=== PATIENT | female | born 1960 | race Caucasian/White ===

== ENCOUNTER 2023-03-12 10:47 | Emergency (ER) | payer MEDICARE, BC, SELFPAY ==
--- NOTE | ~2023-03-12 | CT_ITS ---
EXAMINATION: CT CHEST WITHOUT CONTRAST CLINICAL INFORMATION: Dyspnea on exertion with palpitations COMPARISON: None available. TECHNIQUE: Multidetector volumetric CT imaging of the chest was done. Axial MIP volume rendering provided. Sagittal and coronal reformatted images were obtained. This CT examination was performed using dose optimization techniques as appropriate, variously including the following: *Automated exposure control *Adjustment of mA and/or kV according to patient size (this includes techniques or standardized protocols for targeted exams where dose is matched to indication/reason for exam; i.e. extremities or head) *Use of iterative reconstruction technique DLP: 205 mGy-cm FINDINGS: LUNGS: Biapical pleural-parenchymal scarring is present. Small pulmonary nodules are present with some calcified (for example right upper lobe 7:100) and some not calcified (the largest measuring 3 mm in the right upper lobe (7:188)). The lungs are otherwise clear with no evidence of inflammation or nodules. MEDIASTINUM: The thyroid does not appear to be present in the spine noted in the thyroid bed. There is a 1 cm left paratracheal AP window lymph node. No hilar or mediastinal lymphadenopathy. But evaluation limited by lack of IV contrast. CORONARY ARTERY CALCIFICATION: Present PLEURA: There is no pleural effusion. No pleural mass or thickening. AXILLA: No lymphadenopathy. UPPER ABDOMEN: Unremarkable. OSSEOUS STRUCTURES: Unremarkable. CT/CT chest wo IV con IMPRESSION: 1. A cause for the patient's shortness of breath has not been found. 2. Incidental note made of a few small pulmonary micronodules, none larger 3 mm in size. Fleischner guidelines were followed.
--- NOTE | ~2023-03-12 | US_ITS ---
EXAMINATION: US EXTRACRANIAL CAROTID DUPLEX, BILATERAL CLINICAL INFORMATION: Amaurosis fugax. On heaviness. COMPARISON: None available. TECHNIQUE: Real-time ultrasound and Doppler techniques (integrating B-mode 2-D vascular images, Doppler spectral analysis and color-flow Doppler imaging) were utilized to interrogate the extracranial carotid arteries, the vertebral arteries and proximal subclavian arteries bilaterally. The degree of stenosis is determined by criteria similar to NASCET. FINDINGS: Right Side: 1. There is no atherosclerotic plaque seen in the bifurcation/proximal ICA region. 2. The common carotid artery PSV proximally is 79.5 cm/s and distally 65.9 cm/s. 3. The proximal internal carotid artery velocities are 67.1 cm/s systolic and 24.2 cm/s diastolic. 4. The proximal external carotid artery PSV is 72.8 cm/s. 5. The vertebral artery shows antegrade flow. 6. The subclavian artery waveforms are normal. Left Side: 1. There is no atherosclerotic plaque seen in the bifurcation/proximal ICA region. 2. The common carotid artery PSV proximally is 70.5 cm/s and distally 77.9 cm/s. 3. The proximal internal carotid artery velocities are 62.0 cm/s systolic and 19.8 cm/s diastolic. 4. The proximal external carotid artery PSV is 70.2 cm/s. 5. The vertebral artery shows 44.3 flow. 6. The subclavian artery waveforms are normal. US/US carotid duplex BI IMPRESSION: 1. RIGHT: No hemodynamically significant stenosis. 1. LEFT: No hemodynamically significant stenosis. 2. Normal antegrade flow seen in both vertebral arteries.
--- NOTE | 2023-03-12 07:00 | CA_ITS ---
Transthoracic Echocardiogram Patient (Last, First, Middle): Re Hayden M Gender: Female Date of : 1960 Age: 63 Procedure Date: 03/12/2023 Procedure Type: Transthoracic Echocardiogram Location: ER Height: 167.64 cm Weight: 63.5 kg BSA: 1.72 m2 Heart Rate: bpm BP: 107 / 50 mmHg Vice President Risk Management: Referring MD: Tip Jain MD Symptoms: Palpitations, dyspnea Study Quality: Adequate, good on apical ECG Rhythm: Sinus Conclusions: - The left ventricular systolic function is normal. The calculated ejection fraction is 68% by biplane method. - No obvious valvular pathology seen on this study. Findings Left Ventricle Normal left ventricular cavity size. There is normal left ventricular wall thickness. The left ventricular systolic function is normal. The calculated ejection fraction is 68% by biplane method. There is no evidence of regional wall motion abnormalities. Diastolic function is normal for age. LV peak GLS -20.1%. Right Ventricle Normal right ventricular cavity size and systolic function. Atria Both atria are normal in size. Aortic Valve The aortic valve was not well visualized. There is no aortic valve stenosis. There is no aortic valve regurgitation. Mitral Valve The mitral valve appears normal. There is mild mitral annular calcification. There is trace mitral valve regurgitation. There is no mitral valve stenosis. Pulmonic Valve The pulmonic valve is likely normal. Tricuspid Valve Normal tricuspid valve structure. There is mild tricuspid valve regurgitation. There is no evidence of pulmonary hypertension. Great Vessels The asc aorta is normal in size. Venous The inferior vena cava is normal in size and collapses greater than 50% with inspiration. Pericardium/Pleural There is no evidence of pericardial effusion. Prior Study Comparison No prior study available for comparison. Recommendations, Care & Conclusions No obvious valvular pathology seen on this study. Measurements 2D Linear Measurements IVSd: 1.01 0.6-0.9/0.6-1.0 cm LVIDd: 4.23 3.9-5.3/4.2-5.9 cm LVIDd Index: 2.46 2.4-3.2/2.2-3.1 cm/m2 LVIDs: 2.70 2.0-3.6 cm LVPWd: 1.01 0.7-1.1 cm Ao Root: 3.40 2.1-3.5 cm LA Diam: 3.30 2.7-3.8/3.0-4.0 cm LAIDs Index: 1.92 1.5-2.3 cm/m2 LV Mass: 175.19 67-162/88-224 g LV Mass Index: 101.86 43-95/49-115 g/m2 LVOT Diam: 2.00 3.0+(-)1.3 cm 2D Systolic Function EF 4C: 65.20 >55% EF 2C: 70.70 >55% EF BiP: 67.60 >55% Mitral Valve MV Pk E: 0.88 MV PK A: 0.80 MV Decel Time: 245.00 E/A: 1.10 E'Lateral: 8.38 E'Medial: 8.27 E/E' Med: 10.70 E/E' Lat: 10.50 PHT: 72.00 MVA PHT: 3.06 Decel [place]: 3.60 Aortic Valve AoV Pk Fred: 1.48 AoV Mn Fred: 1.01 AoV VTI: 0.41 AoV Pk Grad: 9.00 Aov Mn Grad: 5.00 LVOT LVOT Diam: 2.00 LVOT Area: 3.14 Diastolic Function MV Pk E: 0.88 MV Pk A: 0.80 E/A: 1.10 E'Medial: 8.27 E/E' Med: 10.70 E' Laterial: 8.38 E/E' Lat: 10.50 Right Ventricle TVS' Fred: 15.00 Tricuspid Valve TR Pk Fred: 2.23 TR Pk Grad: 20.00 RA Press: 3.00 RVSP: 23.00 Great Vessels Aorta Ao Root-2D: 3.40 2.0-3.7 cm Ao Asc: 3.00 2.1-3.4 cm Pulmonary Valve PV Pk Fred: 0.88 Peak PV Grad: 3.00 Updated in Other Vendor System with Status of Final Ben Burr MD electronically signed on 03/12/2023 3:22:56 PM with status of Final
--- NOTE | 2023-03-12 10:58 | ED.ARRPALP ---
HPI - Arrhythmia/Palpitations General Chief Complaint: Arrhythmia/Palpitations <[place] Farrell - Last Filed: 03/12/23 11:07> Stated Complaint: Palpitations <[place] Farrell - Last Filed: 03/12/23 11:07> Time Seen by Provider: 03/12/23 11:47 <[place] Farrell - Last Filed: 03/12/23 11:07> History of Present Illness HPI narrative: 63 yo female with history of paroxysmal afib s/p ablation in 2008 not on anticoagulation, currently on digoxin, hypothyroidism, asthma, & Sjogren's who presents to the emergency department today for sudden onset of right eye darkness that lasted a few minutes and self resolved and then resolved. The patient states that she always feels her heart palpitating. She describes the symptoms as irregular flip flops, pounding, pressure and squeezing sensations she states that she gets these sensations daily. She states that sometimes her heart races very fast as well. She does complain of shortness of breath which she believes is chronic. She occasionally has right religious headaches and she had 1 this morning which then resolved. Patient states she has environmentally allergies and has had rhinorrhea secondary to pollen, she wears a mask outside secondary to high pollen count. She denied fever, chills, sore throat, cough, nausea, vomiting, diarrhea, black stools, bloody stools. She is here visiting from [place]. <Tip Jain MD - Last Filed: 03/12/23 16:14> Related Data Home Medications: Previous Rx's Medication Instructions Recorded propranolol 10 mg tablet 10 mg PO DAILY PRN Palpitations 03/12/23 #30 tabs <[place] Farrell - Last Filed: 03/12/23 11:07> Allergies/Adverse Reactions: Allergies Allergy/AdvReac Type Severity Reaction Status Date / Time azithromycin Allergy Hives Verified 03/12/23 11:03 cephalexin [From Keflex] Allergy Hives Verified 03/12/23 11:03 erythromycin base Allergy Hives Verified 03/12/23 11:03 lactose Allergy Diarrhea Verified 03/12/23 11:03 latex Allergy Anaphylaxis Verified 03/12/23 11:03 methimazole [From Tapazole] Allergy Anaphylaxis Verified 03/12/23 11:03 procaine [From Novocain] Allergy Swelling Verified 03/12/23 11:03 red dye Allergy Facial Verified 03/12/23 11:03 Swelling wheat Allergy Anaphylaxis Verified 03/12/23 11:03 <[place] Farrell - Last Filed: 03/12/23 11:07> Review of Systems Review of Systems: Yes all other systems are reviewed and are negative <Tip Jain MD - Last Filed: 03/12/23 16:14> FOR[facility]LY [facility], LATER [facility] Past Medical History FOR[facility], LAT[facility] Narrative: Social history: She denies tobacco, alcohol and drug use. She is from [place] and is visiting a friend. <Tip Jain MD - Last Filed: 03/12/23 16:14> Medical History: Medical History Afib Asthma Mixed connective tissue disease Sjogren's disease <[place] Farrell - Last Filed: 03/12/23 11:07> Surgical History: Surgical History H/O thyroidectomy <[place] Farrell - Last Filed: 03/12/23 11:07> Social History Social History: Social History Alcohol intake: never Smoked in Last 30 Days: No Advance Directives: No Advance Directives Information Provided: Yes <[place] Farrell - Last Filed: 03/12/23 11:07> Physical Exam Vital Signs: Vital Signs: Last Vital Signs Temp 98.1 F 03/12/23 15:13 Pulse 63 03/12/23 15:13 Resp 10 L 03/12/23 15:13 BP 122/51 L 03/12/23 15:13 Pulse Ox 100 03/12/23 15:13 O2 Del Method Room Air 03/12/23 15:13 BMI result Body Mass Index 22.6 <[place] Farrell - Last Filed: 03/12/23 11:07> Vital Signs: Last Vital Signs Temp 98.1 F 03/12/23 15:13 Pulse 63 03/12/23 15:13 Resp 10 L 03/12/23 15:13 BP 122/51 L 03/12/23 15:13 Pulse Ox 100 03/12/23 15:13 O2 Del Method Room Air 03/12/23 15:13 BMI result Body Mass Index 22.6 <Tip Jain MD - Last Filed: 03/12/23 16:14> Const: Other: Awake, alert, female patient, very pleasant cooperative, does not appear to be in distress, answers all questions appropriate <Tip Jain MD - Last Filed: 03/12/23 16:14> HEENT: Head: Yes normal to inspection, Yes normocephalic and Yes atraumatic <Tip Jain MD - Last Filed: 03/12/23 16:14> Ears: external ears normal <MD Man Barlow Last Filed: 03/12/23 16:14> General nose exam: Normal external nose present <MD Man Barlow Last Filed: 03/12/23 16:14> Face and sinus: Yes normal facial exam <MD Man Barlow Last Filed: 03/12/23 16:14> Mouth: Normal oral and palatal mucosa present <MD Man Barlow Last Filed: 03/12/23 16:14> Throat: Yes posterior oropharynx normal <MD Man Barlow Last Filed: 03/12/23 16:14> Eyes: General: appearance normal, both eyes and all related structures <MD Man Barlow Last Filed: 03/12/23 16:14> Neck: Neck: Yes normal visual inspection, Yes no lymphadenopathy, Yes trachea midline and Yes supple <MD Man Barlow Last Filed: 03/12/23 16:14> Chest: Chest palpation & inspection: normal inspection of the chest and normal palpation of entire chest wall <MD Man Barlow Last Filed: 03/12/23 16:14> Resp: Effort & Inspection: normal respiratory effort and able to speak in complete sentences <MD Man Balrow Last Filed: 03/12/23 16:14> Auscultation: clear to auscultation bilaterally <Tip Jain MD - Last Filed: 03/12/23 16:14> Cardio: Other: Irregularly irregular rate rhythm, normal S1-S2, no murmurs rubs or gallops <Tip Jain MD - Last Filed: 03/12/23 16:14> GI: Inspection: Yes normal to inspection <Tip Jain MD - Last Filed: 03/12/23 16:14> Palpation (GI): Soft to palpation, nontender and no guarding <Tip Jain MD - Last Filed: 03/12/23 16:14> Auscultation: normal bowel sounds <Tip Jain MD - Last Filed: 03/12/23 16:14> : General: Yes no CVA tenderness <Tip Jain MD - Last Filed: 03/12/23 16:14> Back/Spine/Pelvis: Back: no CVA tenderness <Tip Jain MD - Last Filed: 03/12/23 16:14> Skin: General skin exam: no rashes or lesions noted <Tip Jain MD - Last Filed: 03/12/23 16:14> Neuro: Other: Awake, oriented to person place, cranial nerves 2-12 are intact, strength 5/5 symmetric <Tip Jain MD - Last Filed: 03/12/23 16:14> Extrem: General: Yes normal to inspection <Tip Jain MD - Last Filed: 03/12/23 16:14> Psych: Appearance: grossly normal <Tip Jain MD - Last Filed: 03/12/23 16:14> Speech and movement: Normal speech and movement present <Tip Jain MD - Last Filed: 03/12/23 16:14> Affect: normal affect <Tip Jain MD - Last Filed: 03/12/23 16:14> Attitude: cooperative <Tip Jain MD - Last Filed: 03/12/23 16:14> Thought process: Normal thought process present <Tip Jain MD - Last Filed: 03/12/23 16:14> Thought content: Normal thought content present <Tip Jain MD - Last Filed: 03/12/23 16:14> Course Course Course Narrative: RME - 63 yo female with history of paroxysmal afib s/p ablation in 2008 not on anticoagulation, currently on digoxin, hypothyroidism, asthma, & Sjogren's who presents to the ER for evaluation of worsening SOB w/ exertion, dizziness, lightheadedness, and palpitations for the last couple of months. She reports bilateral arm heaviness, throbbing in her head with exertion. Today she had right eye darkness that lasted a few minutes and self resolved. She does not know why she is not on anticoagulation, does not have a [employer]. She is here visiting from [place]. Plan: VSS in triage. ?amaurosis fugax. EKG, Labs, CT chest, carotid U/S ordered. full assessment and treatment by provider in the main ER <GUZ[place] Farrell - Last Filed: 03/12/23 11:07> Medical Decision Making Medical Decision Making MDM Narrative: 63-year-old female with a history of paroxysmal atrial fibrillation on digoxin for rate control who presents emergency department for evaluation of sudden onset of right eye darkness which was brief and is not completely resolved. Patient's symptoms are consistent with amaurosis fugax. Patient states that her heart rate is always irregular, and she experiences palpitations daily. She states that she has difficulty with her balance which is not new. She is also complaining of shortness of breath as well. Patient did have a right-sided temporal headache earlier in the day. Patient was seen by provider at triage, following was ordered: CBC, BMP, liver panel, PT/INR, troponin, BNP, digoxin level, magnesium, TSH with free T4, urinalysis, CT chest, CT brain, EKG, carotid artery studies, echocardiogram, 12 EKG. 1602: My independent interpretation of the patient's laboratory evaluation is as follows: CBC was normal. CMP revealed that elevated BUN of 19 male elevated bicarb of 30. TSH was elevated 12.98-patient has no thyroid and does take thyroid replacement hormone. Patient's ESR and CRP were normal. Coags were normal. The carotid Doppler ultrasounds revealed no stenosis or plaques to explain the patient's amaurosis fugax. Patient transthoracic echocardiogram revealed normal size atria as well as no ventricular abnormalities with a normal EF and no valvular abnormalities. At this time I think the patient's workup is relatively unremarkable, her EKG did not reveal atrial fibrillation but atrial bigeminy and frequent PACs. The patient will be started on a coated aspirin 81 mg daily for her amaurosis fugax, she will need to follow-up with her PCP to discuss further evaluation. She was also started on propanolol 10 mg daily as needed for palpitations. <Tip Jain MD - Last Filed: 03/12/23 16:14> Differential Diagnosis Differential diagnosis includes but is not limited to atrial fibrillation, acute stroke, amaurosis fugax, electrolyte abnormalities, anemia, thyroid disease, palpitations, arrhythmia <Tip Jain MD - Last Filed: 03/12/23 16:14> Admission/Observation Consideration of admission/observation: Escalation of care including admission/observation considered <Tip Jain MD - Last Filed: 03/12/23 16:14> Lab Data MDM Lab Attestation statement: I reviewed the patient's lab results. <Tip Jain MD - Last Filed: 03/12/23 16:14> Result Diagrams: 03/12/23 11:16 03/12/23 11:16 <GUZMAN Farrell - Last Filed: 03/12/23 11:07> Labs: Lab Results 03/12/23 03/12/23 03/12/23 Range/Units 11:16 11:16 11:16 WBC 5.1 (4.8-10.8) X10*3/uL RBC 4.56 (4.20-5.50) X10*6/uL Hgb 14.8 (12.0-16.0) g/dl Hct 43.7 (37.0-47.0) % MCV 95.8 (80.0-98.0) fL MCH 32.5 (27.0-33.0) pg MCHC 33.9 (31.0-35.0) g/dl RDW 12.2 (11.0-16.0) % Plt Count 242 (160-400) X10*3/uL MPV 10.7 (9.4-12.3) fL Immature Gran % (Auto) 0.2 (0.0-0.4) % Neut % (Auto) 63.1 (45-73) % Lymph % (Auto) 25.4 (20-40) % [place] % (Auto) 7.8 (2-11) % Eos % (Auto) 2.3 (0-4) % Baso % (Auto) 1.2 (0-2) % Lymph # (Auto) 1.3 (1.2-4.9) X10*3/uL [place] # (Auto) 0.4 (0.1-1.2) X10*3/uL Eos # (Auto) 0.1 (0.0-0.4) X10*3/uL Baso # (Auto) 0.1 (0.0-0.2) X10*3/uL Abs Immat Gran (auto) 0.01 (0.00-0.03) X10*3/uL Absolute Neuts (auto) 3.2 (2.0-8.3) x10*3/uL Absolute Nucleated RBC 0.000 (0.0-0.012) X10*3/uL Nucleated RBC % (auto) 0.0 (0.0-0.2) /100WBC ESR (0-20) MM/HR PT 11.7 (10.0-13.1) SEC INR 1.0 (0.9-1.1) APTT 33.5 (26.0-36.4) SEC Sodium 140 (135-145) mmol/L Potassium 4.0 (3.3-5.1) mmol/L Chloride 105 (96-108) mmol/L Carbon Dioxide 30 H (22-29) mmol/L Anion Gap 9 L (12-20) BUN 19 H (9-16) mg/dL Creatinine 0.76 (0.5-1.4) mg/dL Estim Creat Clear Calc 69.0 Estimated GFR > 60 Random Glucose 93 (60-115) mg/dL Calcium 9.5 (8.4-10.2) mg/dL Magnesium 2.1 (1.6-2.6) mg/dL Total Bilirubin 1.0 (0.0-1.0) mg/dL Direct Bilirubin 0.3 (0.0-0.5) mg/dL AST 17 (5-31) U/L ALT 15 (0-31) U/L Alkaline Phosphatase 64 (39-117) U/L Troponin I High Sens (<3.5-17.0) ng/L C-Reactive Protein < 0.04 (< or = 0.50) mg/dL B-Natriuretic Peptide (<100) pg/mL Total Protein 6.8 (6.5-8.0) g/dL Albumin 4.3 (3.5-5.0) g/dL TSH 12.98 H (0.32-4.0) uIU/mL Free T4 1.12 (0.71-1.85) ng/dL Urine Color Urine Appearance Urine pH (5.0-9.0) Ur Specific [place] (1.005-1.025) Urine Protein (Neg-Trace) mg/dL Urine Glucose (UA) (Negative) mg/dL Urine Ketones (Negative) mg/dL Urine Blood (Negative) Urine Nitrite (Negative) Ur Leukocyte Esterase (Negative) Urine RBC (0-2) /HPF Urine WBC (0-5) /HPF Ur Squamous Epith Cells (0-2) /HPF Urine Bacteria (None Seen) Hyaline Casts (0-2) /LPF Digoxin (0.8-2.0) ng/mL 03/12/23 03/12/23 03/12/23 Range/Units 11:16 11:16 11:16 WBC (4.8-10.8) X10*3/uL RBC (4.20-5.50) X10*6/uL Hgb (12.0-16.0) g/dl Hct (37.0-47.0) % MCV (80.0-98.0) fL MCH (27.0-33.0) pg MCHC (31.0-35.0) g/dl RDW (11.0-16.0) % Plt Count (160-400) X10*3/uL MPV (9.4-12.3) fL Immature Gran % (Auto) (0.0-0.4) % Neut % (Auto) (45-73) % Lymph % (Auto) (20-40) % [place] % (Auto) (2-11) % Eos % (Auto) (0-4) % Baso % (Auto) (0-2) % Lymph # (Auto) (1.2-4.9) X10*3/uL [place] # (Auto) (0.1-1.2) X10*3/uL Eos # (Auto) (0.0-0.4) X10*3/uL Baso # (Auto) (0.0-0.2) X10*3/uL Abs Immat Gran (auto) (0.00-0.03) X10*3/uL Absolute Neuts (auto) (2.0-8.3) x10*3/uL Absolute Nucleated RBC (0.0-0.012) X10*3/uL Nucleated RBC % (auto) (0.0-0.2) /100WBC ESR (0-20) MM/HR PT (10.0-13.1) SEC INR (0.9-1.1) APTT (26.0-36.4) SEC Sodium (135-145) mmol/L Potassium (3.3-5.1) mmol/L Chloride (96-108) mmol/L Carbon Dioxide (22-29) mmol/L Anion Gap (12-20) BUN (9-16) mg/dL Creatinine (0.5-1.4) mg/dL Estim Creat Clear Calc Estimated GFR Random Glucose (60-115) mg/dL Calcium (8.4-10.2) mg/dL Magnesium (1.6-2.6) mg/dL Total Bilirubin (0.0-1.0) mg/dL Direct Bilirubin (0.0-0.5) mg/dL AST (5-31) U/L ALT (0-31) U/L Alkaline Phosphatase (39-117) U/L Troponin I High Sens < 2.7 (<3.5-17.0) ng/L C-Reactive Protein (< or = 0.50) mg/dL B-Natriuretic Peptide 38 (<100) pg/mL Total Protein (6.5-8.0) g/dL Albumin (3.5-5.0) g/dL TSH (0.32-4.0) uIU/mL Free T4 (0.71-1.85) ng/dL Urine Color Urine Appearance Urine pH (5.0-9.0) Ur Specific [place] (1.005-1.025) Urine Protein (Neg-Trace) mg/dL Urine Glucose (UA) (Negative) mg/dL Urine Ketones (Negative) mg/dL Urine Blood (Negative) Urine Nitrite (Negative) Ur Leukocyte Esterase (Negative) Urine RBC (0-2) /HPF Urine WBC (0-5) /HPF Ur Squamous Epith Cells (0-2) /HPF Urine Bacteria (None Seen) Hyaline Casts (0-2) /LPF Digoxin 0.5 L (0.8-2.0) ng/mL 03/12/23 03/12/23 Range/Units 13:24 15:16 WBC (4.8-10.8) X10*3/uL RBC (4.20-5.50) X10*6/uL Hgb (12.0-16.0) g/dl Hct (37.0-47.0) % MCV (80.0-98.0) fL MCH (27.0-33.0) pg MCHC (31.0-35.0) g/dl RDW (11.0-16.0) % Plt Count (160-400) X10*3/uL MPV (9.4-12.3) fL Immature Gran % (Auto) (0.0-0.4) % Neut % (Auto) (45-73) % Lymph % (Auto) (20-40) % [place] % (Auto) (2-11) % Eos % (Auto) (0-4) % Baso % (Auto) (0-2) % Lymph # (Auto) (1.2-4.9) X10*3/uL [place] # (Auto) (0.1-1.2) X10*3/uL Eos # (Auto) (0.0-0.4) X10*3/uL Baso # (Auto) (0.0-0.2) X10*3/uL Abs Immat Gran (auto) (0.00-0.03) X10*3/uL Absolute Neuts (auto) (2.0-8.3) x10*3/uL Absolute Nucleated RBC (0.0-0.012) X10*3/uL Nucleated RBC % (auto) (0.0-0.2) /100WBC ESR 7 (0-20) MM/HR PT (10.0-13.1) SEC INR (0.9-1.1) APTT (26.0-36.4) SEC Sodium (135-145) mmol/L Potassium (3.3-5.1) mmol/L Chloride (96-108) mmol/L Carbon Dioxide (22-29) mmol/L Anion Gap (12-20) BUN (9-16) mg/dL Creatinine (0.5-1.4) mg/dL Estim Creat Clear Calc Estimated GFR Random Glucose (60-115) mg/dL Calcium (8.4-10.2) mg/dL Magnesium (1.6-2.6) mg/dL Total Bilirubin (0.0-1.0) mg/dL Direct Bilirubin (0.0-0.5) mg/dL AST (5-31) U/L ALT (0-31) U/L Alkaline Phosphatase (39-117) U/L Troponin I High Sens (<3.5-17.0) ng/L C-Reactive Protein (< or = 0.50) mg/dL B-Natriuretic Peptide (<100) pg/mL Total Protein (6.5-8.0) g/dL Albumin (3.5-5.0) g/dL TSH (0.32-4.0) uIU/mL Free T4 (0.71-1.85) ng/dL Urine Color Yellow Urine Appearance Clear Urine pH 7.0 (5.0-9.0) Ur Specific [place] 1.010 (1.005-1.025) Urine Protein Negative (Neg-Trace) mg/dL Urine Glucose (UA) Negative (Negative) mg/dL Urine Ketones Trace (Negative) mg/dL Urine Blood Negative (Negative) Urine Nitrite Negative (Negative) Ur Leukocyte Esterase Small (1+) H (Negative) Urine RBC 0-2 (0-2) /HPF Urine WBC 11-20 H (0-5) /HPF Ur Squamous Epith Cells 0-2 (0-2) /HPF Urine Bacteria None Seen (None Seen) Hyaline Casts 0-2 (0-2) /LPF Digoxin (0.8-2.0) ng/mL <[place] Farrell - Last Filed: 03/12/23 11:07> Lab Results 03/12/23 03/12/23 03/12/23 Range/Units 11:16 11:16 11:16 WBC 5.1 (4.8-10.8) X10*3/uL RBC 4.56 (4.20-5.50) X10*6/uL Hgb 14.8 (12.0-16.0) g/dl Hct 43.7 (37.0-47.0) % MCV 95.8 (80.0-98.0) fL MCH 32.5 (27.0-33.0) pg MCHC 33.9 (31.0-35.0) g/dl RDW 12.2 (11.0-16.0) % Plt Count 242 (160-400) X10*3/uL MPV 10.7 (9.4-12.3) fL Immature Gran % (Auto) 0.2 (0.0-0.4) % Neut % (Auto) 63.1 (45-73) % Lymph % (Auto) 25.4 (20-40) % [place] % (Auto) 7.8 (2-11) % Eos % (Auto) 2.3 (0-4) % Baso % (Auto) 1.2 (0-2) % Lymph # (Auto) 1.3 (1.2-4.9) X10*3/uL [place] # (Auto) 0.4 (0.1-1.2) X10*3/uL Eos # (Auto) 0.1 (0.0-0.4) X10*3/uL Baso # (Auto) 0.1 (0.0-0.2) X10*3/uL Abs Immat Gran (auto) 0.01 (0.00-0.03) X10*3/uL Absolute Neuts (auto) 3.2 (2.0-8.3) x10*3/uL Absolute Nucleated RBC 0.000 (0.0-0.012) X10*3/uL Nucleated RBC % (auto) 0.0 (0.0-0.2) /100WBC ESR (0-20) MM/HR PT 11.7 (10.0-13.1) SEC INR 1.0 (0.9-1.1) APTT 33.5 (26.0-36.4) SEC Sodium 140 (135-145) mmol/L Potassium 4.0 (3.3-5.1) mmol/L Chloride 105 (96-108) mmol/L Carbon Dioxide 30 H (22-29) mmol/L Anion Gap 9 L (12-20) BUN 19 H (9-16) mg/dL Creatinine 0.76 (0.5-1.4) mg/dL Estim Creat Clear Calc 69.0 Estimated GFR > 60 Random Glucose 93 (60-115) mg/dL Calcium 9.5 (8.4-10.2) mg/dL Magnesium 2.1 (1.6-2.6) mg/dL Total Bilirubin 1.0 (0.0-1.0) mg/dL Direct Bilirubin 0.3 (0.0-0.5) mg/dL AST 17 (5-31) U/L ALT 15 (0-31) U/L Alkaline Phosphatase 64 (39-117) U/L Troponin I High Sens (<3.5-17.0) ng/L C-Reactive Protein < 0.04 (< or = 0.50) mg/dL B-Natriuretic Peptide (<100) pg/mL Total Protein 6.8 (6.5-8.0) g/dL Albumin 4.3 (3.5-5.0) g/dL TSH 12.98 H (0.32-4.0) uIU/mL Free T4 1.12 (0.71-1.85) ng/dL Urine Color Urine Appearance Urine pH (5.0-9.0) Ur Specific [place] (1.005-1.025) Urine Protein (Neg-Trace) mg/dL Urine Glucose (UA) (Negative) mg/dL Urine Ketones (Negative) mg/dL Urine Blood (Negative) Urine Nitrite (Negative) Ur Leukocyte Esterase (Negative) Urine RBC (0-2) /HPF Urine WBC (0-5) /HPF Ur Squamous Epith Cells (0-2) /HPF Urine Bacteria (None Seen) Hyaline Casts (0-2) /LPF Digoxin (0.8-2.0) ng/mL 03/12/23 03/12/23 03/12/23 Range/Units 11:16 11:16 11:16 WBC (4.8-10.8) X10*3/uL RBC (4.20-5.50) X10*6/uL Hgb (12.0-16.0) g/dl Hct (37.0-47.0) % MCV (80.0-98.0) fL MCH (27.0-33.0) pg MCHC (31.0-35.0) g/dl RDW (11.0-16.0) % Plt Count (160-400) X10*3/uL MPV (9.4-12.3) fL Immature Gran % (Auto) (0.0-0.4) % Neut % (Auto) (45-73) % Lymph % (Auto) (20-40) % [place] % (Auto) (2-11) % Eos % (Auto) (0-4) % Baso % (Auto) (0-2) % Lymph # (Auto) (1.2-4.9) X10*3/uL [place] # (Auto) (0.1-1.2) X10*3/uL Eos # (Auto) (0.0-0.4) X10*3/uL Baso # (Auto) (0.0-0.2) X10*3/uL Abs Immat Gran (auto) (0.00-0.03) X10*3/uL Absolute Neuts (auto) (2.0-8.3) x10*3/uL Absolute Nucleated RBC (0.0-0.012) X10*3/uL Nucleated RBC % (auto) (0.0-0.2) /100WBC ESR (0-20) MM/HR PT (10.0-13.1) SEC INR (0.9-1.1) APTT (26.0-36.4) SEC Sodium (135-145) mmol/L Potassium (3.3-5.1) mmol/L Chloride (96-108) mmol/L Carbon Dioxide (22-29) mmol/L Anion Gap (12-20) BUN (9-16) mg/dL Creatinine (0.5-1.4) mg/dL Estim Creat Clear Calc Estimated GFR Random Glucose (60-115) mg/dL Calcium (8.4-10.2) mg/dL Magnesium (1.6-2.6) mg/dL Total Bilirubin (0.0-1.0) mg/dL Direct Bilirubin (0.0-0.5) mg/dL AST (5-31) U/L ALT (0-31) U/L Alkaline Phosphatase (39-117) U/L Troponin I High Sens < 2.7 (<3.5-17.0) ng/L C-Reactive Protein (< or = 0.50) mg/dL B-Natriuretic Peptide 38 (<100) pg/mL Total Protein (6.5-8.0) g/dL Albumin (3.5-5.0) g/dL TSH (0.32-4.0) uIU/mL Free T4 (0.71-1.85) ng/dL Urine Color Urine Appearance Urine pH (5.0-9.0) Ur Specific [place] (1.005-1.025) Urine Protein (Neg-Trace) mg/dL Urine Glucose (UA) (Negative) mg/dL Urine Ketones (Negative) mg/dL Urine Blood (Negative) Urine Nitrite (Negative) Ur Leukocyte Esterase (Negative) Urine RBC (0-2) /HPF Urine WBC (0-5) /HPF Ur Squamous Epith Cells (0-2) /HPF Urine Bacteria (None Seen) Hyaline Casts (0-2) /LPF Digoxin 0.5 L (0.8-2.0) ng/mL 03/12/23 03/12/23 Range/Units 13:24 15:16 WBC (4.8-10.8) X10*3/uL RBC (4.20-5.50) X10*6/uL Hgb (12.0-16.0) g/dl Hct (37.0-47.0) % MCV (80.0-98.0) fL MCH (27.0-33.0) pg MCHC (31.0-35.0) g/dl RDW (11.0-16.0) % Plt Count (160-400) X10*3/uL MPV (9.4-12.3) fL Immature Gran % (Auto) (0.0-0.4) % Neut % (Auto) (45-73) % Lymph % (Auto) (20-40) % [place] % (Auto) (2-11) % Eos % (Auto) (0-4) % Baso % (Auto) (0-2) % Lymph # (Auto) (1.2-4.9) X10*3/uL [place] # (Auto) (0.1-1.2) X10*3/uL Eos # (Auto) (0.0-0.4) X10*3/uL Baso # (Auto) (0.0-0.2) X10*3/uL Abs Immat Gran (auto) (0.00-0.03) X10*3/uL Absolute Neuts (auto) (2.0-8.3) x10*3/uL Absolute Nucleated RBC (0.0-0.012) X10*3/uL Nucleated RBC % (auto) (0.0-0.2) /100WBC ESR 7 (0-20) MM/HR PT (10.0-13.1) SEC INR (0.9-1.1) APTT (26.0-36.4) SEC Sodium (135-145) mmol/L Potassium (3.3-5.1) mmol/L Chloride (96-108) mmol/L Carbon Dioxide (22-29) mmol/L Anion Gap (12-20) BUN (9-16) mg/dL Creatinine (0.5-1.4) mg/dL Estim Creat Clear Calc Estimated GFR Random Glucose (60-115) mg/dL Calcium (8.4-10.2) mg/dL Magnesium (1.6-2.6) mg/dL Total Bilirubin (0.0-1.0) mg/dL Direct Bilirubin (0.0-0.5) mg/dL AST (5-31) U/L ALT (0-31) U/L Alkaline Phosphatase (39-117) U/L Troponin I High Sens (<3.5-17.0) ng/L C-Reactive Protein (< or = 0.50) mg/dL B-Natriuretic Peptide (<100) pg/mL Total Protein (6.5-8.0) g/dL Albumin (3.5-5.0) g/dL TSH (0.32-4.0) uIU/mL Free T4 (0.71-1.85) ng/dL Urine Color Yellow Urine Appearance Clear Urine pH 7.0 (5.0-9.0) Ur Specific [place] 1.010 (1.005-1.025) Urine Protein Negative (Neg-Trace) mg/dL Urine Glucose (UA) Negative (Negative) mg/dL Urine Ketones Trace (Negative) mg/dL Urine Blood Negative (Negative) Urine Nitrite Negative (Negative) Ur Leukocyte Esterase Small (1+) H (Negative) Urine RBC 0-2 (0-2) /HPF Urine WBC 11-20 H (0-5) /HPF Ur Squamous Epith Cells 0-2 (0-2) /HPF Urine Bacteria None Seen (None Seen) Hyaline Casts 0-2 (0-2) /LPF Digoxin (0.8-2.0) ng/mL <Tip Jain MD - Last Filed: 03/12/23 16:14> Independent Interpretation I performed an independent interpretation of an: EKG <Tip Jain MD - Last Filed: 03/12/23 16:14> Interpretation: My independent interpretation patient's 12 EKG done at 11:07 is as follows: Atrial bigeminy with a rate of 65, normal [place] interval, QRS duration QTC interval, no ST segment elevation, no ST segment depression, no significant T-wave abnormalities. <Tip Jain MD - Last Filed: 03/12/23 16:14> Radiology Impression Discussion of test interpretation with radiology: I have reviewed the radiologist's reading. <Tip Jain MD - Last Filed: 03/12/23 16:14> Radiologist Impression: US carotid duplex BI IMPRESSION: 1. RIGHT: No hemodynamically significant stenosis. 1. LEFT: No hemodynamically significant stenosis. 2. Normal antegrade flow seen in both vertebral arteries. Dictated By:Johnathon Astorga MD CT chest wo IV con IMPRESSION: 1. A cause for the patient's shortness of breath has not been found. 2. Incidental note made of a few small pulmonary micronodules, none larger 3 mm in size. Fleischner guidelines were followed. Dictated By:Jatin Rachel MD Procedure(s): CA echo transthoracic complete Conclusions: - The left ventricular systolic function is normal. The calculated ejection fraction is 68% by biplane method. - No obvious valvular pathology seen on this study. Findings Left Ventricle Normal left ventricular cavity size. There is normal left ventricular wall thickness. The left ventricular systolic function is normal. The calculated ejection fraction is 68% by biplane method. There is no evidence of regional wall motion abnormalities. Diastolic function is normal for age. LV peak GLS -20.1%. Right Ventricle Normal right ventricular cavity size and systolic function. Atria Both atria are normal in size. Aortic Valve The aortic valve was not well visualized. There is no aortic valve stenosis. There is no aortic valve regurgitation. Mitral Valve The mitral valve appears normal. There is mild mitral annular calcification. There is trace mitral valve regurgitation. There is no mitral valve stenosis. Pulmonic Valve The pulmonic valve is likely normal. Tricuspid Valve Normal tricuspid valve structure. There is mild tricuspid valve regurgitation. There is no evidence of pulmonary hypertension. Great Vessels The asc aorta is normal in size. Venous The inferior vena cava is normal in size and collapses greater than 50% with inspiration. Pericardium/Pleural There is no evidence of pericardial effusion. Prior Study Comparison No prior study available for comparison. Recommendations, Care & Conclusions No obvious valvular pathology seen on this study. <Tip Jain MD - Last Filed: 03/12/23 16:14> Independent Historian Clinical information obtained from an independent historian. History obtained from or confirmed by: Other (Patient's friend, Dr. Perkins) <Tip Jain MD - Last Filed: 03/12/23 16:14> Discharge Plan Discharge Clinical Impression: Amaurosis fugax, Palpitation <GUZMAN Farrell - Last Filed: 03/12/23 11:07> Patient Disposition: Home, Self-Care <GUZMAN Farrell - Last Filed: 03/12/23 11:07> Instructions: Heart Palpitations (ED) <GUZMAN Farrell - Last Filed: 03/12/23 11:07> Additional Instructions: The brief loss of vision in your right eye may have been caused by blocking the arterial circulation red now of your eye. This is called amaurosis fugax Take a coated aspirin 81 mg once a day to help prevent blood clots. Your TSH was elevated at 12.98. Increase your thyroid medication and follow-up with your provider in 6 weeks to get a repeat TSH. The CT scan of your chest revealed no clear cause for your shortness of breath, you did have incidental 3 mm nodules, since your not a smoker these are probably not concerning but you should discuss this finding with your doctor to see if you need any further testing. The ultrasounds of your carotid arteries revealed no narrowing or stenosis which is very reassuring. The echocardiogram of your heart was normal which is reassuring I am starting you on propanolol 10 mg once a day for your palpitations to see if this improves the fluttering/flip-flopping sensation that you feel in your chest. Follow-up with your doctor in 2 days. Please return to the emergency department if your symptoms get worse or if you develop any symptoms that are concerning to you. <GUZMAN Farrell - Last Filed: 03/12/23 11:07> Prescriptions: New propranolol 10 mg tablet 10 mg PO DAILY PRN (Reason: Palpitations) Qty: 30 0RF <GUZMAN Farrell - Last Filed: 03/12/23 11:07>
[2023-03-12 11:04] VITALS: BP 107/43; PULSE 78; RESP 18; TEMP 37; O2SAT 100; BMI 22.6
--- NOTE | 2023-03-12 11:04 | ECG_ITS ---
Test Reason : palpitatiions Blood Pressure : / mmHG Vent. Rate : 065 BPM Atrial Rate : 065 BPM P-R Int : 196 ms QRS Dur : 078 ms QT Int : 382 ms P-R-T Axes : 073 049 070 degrees QTc Int : 397 ms Sinus rhythm with Premature atrial complexes in a pattern of bigeminy Nonspecific T wave abnormality Abnormal ECG No previous ECGs available Referred By: Vinita De Jesus Electronically Signed By:ORTIZ TABARES
[2023-03-12 11:22] LABS: Basophils Absolute Auto 0.1 X10*3/uL (0.0-0.2); Basophils Percent Auto 1.2 % (0-2); Eosinophils Absolute Auto 0.1 X10*3/uL (0.0-0.4); Eosinophils Percent Auto 2.3 % (0-4); Hematocrit 43.7 % (37.0-47.0); Hemoglobin 14.8 g/dl (12.0-16.0); Imm Gran Abs Auto 0.01 X10*3/uL (0.00-0.03); Imm Gran Pct Auto 0.2 % (0.0-0.4); Lymphocytes Absolute Auto 1.3 X10*3/uL (1.2-4.9); Lymphocytes Percent Auto 25.4 % (20-40); MANUAL DIFF FLAG NO; Mean Corpuscular HGB Conc 33.9 g/dl (31.0-35.0); Mean Corpuscular Hemoglobin 32.5 pg (27.0-33.0); Mean Corpuscular Volume 95.8 fL (80.0-98.0); Mean Platelet Volume 10.7 fL (9.4-12.3); Monocytes Absolute Auto 0.4 X10*3/uL (0.1-1.2); Monocytes Percent Auto 7.8 % (2-11); Neutrophils Absolute Auto 3.2 x10*3/uL (2.0-8.3); Neutrophils Percent Auto 63.1 % (45-73); Platelet Count 242 X10*3/uL (160-400); Red Blood Count 4.56 X10*6/uL (4.20-5.50); Red Cell Distribution Width 12.2 % (11.0-16.0); White Blood Count 5.1 X10*3/uL (4.8-10.8)
[2023-03-12 11:29] LABS: Prothrombin Time 11.7 SEC (10.0-13.1)
[2023-03-12 11:32] LABS: Partial Thromboplastin Time 33.5 SEC (26.0-36.4)
[2023-03-12 11:42] LABS: Digoxin 0.5 ng/mL (0.8-2.0)
[2023-03-12 11:47] LABS: B Type Natriuretic Peptide 38 pg/mL (<100)
[2023-03-12 11:50] LABS: Alanine Aminotransferase 15 U/L (0-31); Albumin Level 4.3 g/dL (3.5-5.0); Alkaline Phosphatase 64 U/L (39-117); Anion Gap 9 (12-20); Aspartate Amino Transferase 17 U/L (5-31); Bilirubin Direct 0.3 mg/dL (0.0-0.5); Blood Urea Nitrogen 19 mg/dL (9-16); Calcium 9.5 mg/dL (8.4-10.2); Carbon Dioxide 30 mmol/L (22-29); Chloride 105 mmol/L (96-108); Estimated Glomerular Filt Rate > 60; Glucose Random 93 mg/dL (60-115); Magnesium 2.1 mg/dL (1.6-2.6); Sodium 140 mmol/L (135-145); Total Protein 6.8 g/dL (6.5-8.0)
[2023-03-12 11:51] LABS: Troponin-I High Sensitivity < 2.7 ng/L (<3.5-17.0)
--- NOTE | 2023-03-12 12:00 | PC.NURSE ---
bedside carotid being performed
[2023-03-12 12:04] LABS: TSH reflex Free T4 12.98 uIU/mL (0.32-4.0)
--- NOTE | 2023-03-12 12:28 | PC.NURSE ---
patient a&ox3, manager medical applied- pt sinus [place] with occasional pac/pvcs, labs obtained, ct scan performed, carotid doppler performed, friend at bedside, pt denying pain/discomfort at this time, call gottlieb within reach, will continue to monitor
[2023-03-12 12:59] LABS: C Reactive Protein < 0.04 mg/dL (< or = 0.50)
[2023-03-12 13:18] LABS: Free T4 (Free Thyroxine) 1.12 ng/dL (0.71-1.85)
[2023-03-12 14:15] LABS: Erythrocyte Sedimentation Rate 7 MM/HR (0-20)
--- NOTE | 2023-03-12 14:30 | PC.NURSE ---
bedside echo performed
[2023-03-12 15:13] VITALS: BP 122/51; PULSE 63; RESP 10; TEMP 36.7; O2SAT 100
[2023-03-12 15:24] LABS: Appearance Urine Clear; Color Urine Yellow; Glucose Urine UA Negative (Negative); Leukocyte Esterase Urine Small (1+) (Negative); Nitrite Urine Negative (Negative); UMIC TRIGGER UACC YES; Urine Blood Negative (Negative); Urine Ketones Trace mg/dL (Negative); Urine Protein Negative (Neg-Trace)
[2023-03-12 15:27] LABS: Bacteria Urine None Seen (None Seen); Hyaline Casts Urine 0-2 /LPF (0-2); RBC Urine 0-2 /HPF (0-2); Squamous Epithelial Cell Urine 0-2 /HPF (0-2); UACC Culture Trigger YES
[2023-03-12 16:00] VITALS: BP 123/60; PULSE 57; RESP 18; TEMP 36.7; O2SAT 98
[2023-03-12] MEDS: Aspirin Enteric Coated 81 MG TABLET.DR PO (16:02)
--- NOTE | 2023-03-12 16:06 | PC.NURSE ---
patient a&ox3, vss, pt medicated per order, pt to discharge home.
== END 2023-03-12 16:38 | disposition home or self-care (01) ==
PROVIDERS: Physician Assistant; Emergency Provider Emergency Medicine Emergency Medical Services
DX: R00.2 Palpitations (principal); G45.3 Amaurosis fugax; R06.02 Shortness of breath; I48.0 Paroxysmal atrial fibrillation; Z79.899 Other long term (current) drug therapy
CPT/HCPCS: 36415; 71250; 80048; 80076; 80162; 81001; 83735; 83880; 84439; 84443; 84484; 85025; 85610; 85652; 85730; 86140; 87086; 93005; 93306; 93880; 99285; Q9957